=== PATIENT | female | born 1950 | race Hispanic/Latino ===

== ENCOUNTER 2017-11-26 05:33 | Day surgery (SDC) | payer OTHER ==
[~2017-11-26] VITALS: Ht 162.6 cm; Wt 78.7 kg
[~2017-11-26 05:33] MED LIST: ATEN50TA PO; CETI10CA5 PO; CITA40TA6 PO; FENO200C PO; LISI10TA7 PO; METF-444 PO; POTA20TA82 PO; RANI300C PO; TRIA1CAP6 PO
[2017-11-26] MEDS ORDERED: SODIUM CHLORIDE 0.9% 1000ML 1,000 ML IV ONE (05:35)
[2017-11-26 06:14] VITALS: BP 159/68
[2017-11-26] MEDS ORDERED: PROPOFOL 10 MG/ML 20ML VIAL IV ONE (06:28)
[2017-11-26] MEDS ORDERED: LIDOCAINE HCL-MPF 2% 5ML VIAL ONE (06:29)
[2017-11-26 07:16] VITALS: BP 94/40
[2017-11-26 07:21] VITALS: BP 119/41
[2017-11-26 07:26] VITALS: BP 109/51
== END 2017-11-26 08:00 | disposition home or self-care (01) ==
LOC: ENDO 05:33 → DAH 05:33 → ENDO 08:00
PROVIDERS: ATTEND Internal Medicine
DX: K57.30 Diverticulosis of large intestine without perforation or abscess without bleeding (principal); K29.50 Unspecified chronic gastritis without bleeding; Z86.010 Personal history of colon polyps; K44.9 Diaphragmatic hernia without obstruction or gangrene; K64.2 Third degree hemorrhoids; K86.1 Other chronic pancreatitis; K80.20 Calculus of gallbladder without cholecystitis without obstruction; K31.89 Other diseases of stomach and duodenum; I10 Essential (primary) hypertension; J45.909 Unspecified asthma, uncomplicated; E11.9 Type 2 diabetes mellitus without complications; F15.90 Other stimulant use, unspecified, uncomplicated; E78.5 Hyperlipidemia, unspecified; F17.210 Nicotine dependence, cigarettes, uncomplicated; Z85.22 Personal history of malignant neoplasm of nasal cavities, middle ear, and accessory sinuses; Z90.710 Acquired absence of both cervix and uterus; Z90.49 Acquired absence of other specified parts of digestive tract; Z98.49 Cataract extraction status, unspecified eye; Z79.2 Long term (current) use of antibiotics; Z79.899 Other long term (current) drug therapy; Z88.8 Allergy status to other drugs, medicaments and biological substances; Z83.3 Family history of diabetes mellitus; Z82.49 Family history of ischemic heart disease and other diseases of the circulatory system; Z82.5 Family history of asthma and other chronic lower respiratory diseases
CPT/HCPCS: 43239; 82948; 88305; 93005; A4606; G0121; J2704; J3490; J7030; 43231; 45380

== ENCOUNTER → 2023-01-07 | Outpatient (CLI) | payer MEDICARE ==
[~2023-01-07] MED LIST changes: +CITA-108 PO; -CITA40TA6 PO; -FENO200C PO; +FENO200C28 PO; +LISI10TA24 PO; -LISI10TA7 PO; +POTA-202 PO; -POTA20TA82 PO; -TRIA1CAP6 PO; +TRIA1CAP87 PO
== END | disposition home or self-care (01) ==
LOC: SHCH 07:32
PROVIDERS: ATTEND Internal Medicine Cardiovascular Disease
DX: I11.9 Hypertensive heart disease without heart failure (principal); I20.0 Unstable angina; E78.5 Hyperlipidemia, unspecified; E11.9 Type 2 diabetes mellitus without complications
CPT/HCPCS: 93306

== ENCOUNTER → 2023-01-15 | Outpatient (CLI) | payer MEDICARE | END | disposition home or self-care (01) | LOC: SHCH 09:19 | PROVIDERS: ATTEND Internal Medicine Cardiovascular Disease | DX: I87.2 Venous insufficiency (chronic) (peripheral) (principal); I70.293 Other atherosclerosis of native arteries of extremities, bilateral legs | CPT/HCPCS: 93925; 93970 ==

== ENCOUNTER → 2023-05-16 | Outpatient (CLI) | payer MEDICARE | END | disposition home or self-care (01) | LOC: RAH 07:03 | PROVIDERS: ATTEND Internal Medicine | DX: R14.0 Abdominal distension (gaseous) (principal); R10.13 Epigastric pain; R68.81 Early satiety | CPT/HCPCS: 78264; A9541 ==

== ENCOUNTER → 2023-07-01 | Outpatient (CLI) | payer MEDICARE | END | disposition home or self-care (01) | LOC: RAH 14:56 | PROVIDERS: ATTEND Internal Medicine | DX: K86.1 Other chronic pancreatitis (principal); R91.1 Solitary pulmonary nodule; R10.9 Unspecified abdominal pain; M54.50 Low back pain, unspecified; I70.0 Atherosclerosis of aorta | CPT/HCPCS: 71250; 74176 ==

== ENCOUNTER → 2023-09-22 | Outpatient (CLI) | payer MEDICARE | END | disposition home or self-care (01) | LOC: RAH 08:20 | PROVIDERS: ATTEND Internal Medicine | DX: R91.1 Solitary pulmonary nodule (principal); M47.815 Spondylosis without myelopathy or radiculopathy, thoracolumbar region; I70.0 Atherosclerosis of aorta; K86.1 Other chronic pancreatitis; Z90.49 Acquired absence of other specified parts of digestive tract | CPT/HCPCS: 71046; 76700 ==

== ENCOUNTER → 2024-12-30 | Outpatient (CLI) | payer MEDICARE ==
[~2024-12-30] MED LIST changes: +IOHEXOL 350 MG/ML 100ML INFUS..BTL IV ONE
--- NOTE | 2024-12-31 00:31 | HMCIMG ---
EXAM: CTA ABDOMEN WITH AND WITHOUT INTRAVENOUS CONTRAST (CT coverage limited up to the iliac fossa only, no pelvic evaluation) CLINICAL HISTORY: Unstable angina TECHNIQUE: Axial CTA images of the abdomen acquired with and without intravenous contrast in the arterial phase. Coronal and sagittal reformatted images reviewed. 3D volume-rendered reconstructions generated on an independent workstation. CONTRAST: Contrast injected intravenously without incident. COMPARISON: None provided. FINDINGS: VASCULATURE Aorta Diffuse atherosclerotic calcified plaques throughout the abdominal aorta. No aneurysm, dissection, or occlusion. Celiac Trunk Ostial calcified plaque causing 40%???70% stenosis. No occlusion. Superior Mesenteric Artery Ostial calcified plaque causing 20%???30% stenosis. Additional distal SMA plaque producing 50%???60% luminal stenosis. Inferior Mesenteric Artery Patent. No significant stenosis. Renal Arteries Bilateral renal artery ostial calcified plaques with up to 10% narrowing. No hemodynamically significant stenosis. Iliac Vessels (proximal segments, as included in field of view) Common iliac arteries patent without occlusion or significant stenosis. No dissection. LOWER THORAX Mild pleural thickening in the left basal region with subpleural scarring. No focal basilar consolidation. ABDOMEN Liver Hepatomegaly measuring 17 cm with diffuse fatty liver changes. Gallbladder and Bile Ducts Gallbladder surgically absent. No biliary ductal dilatation. Pancreas Cystic lesion measuring 4.4 ??? 4.6 ??? 5.2 cm in the pancreatic tail. No ductal dilatation. Spleen Normal. Adrenals No adrenal mass. Kidneys Symmetric enhancement. Bilateral perinephric fat stranding. No hydronephrosis or solid renal lesion. Stomach and Bowel No bowel obstruction. No bowel wall thickening. No CT evidence of acute diverticulitis. Appendix Appendix measures 0.3 cm, normal. Peritoneum No free intraperitoneal air. No free fluid. Lymph Nodes No abdominal lymphadenopathy up to the iliac fossa. Bones Age-appropriate thoracolumbar spondylosis without acute osseous pathology. Hernias Umbilical hernia with 2.5 cm fascial defect, containing fat. IMPRESSION: * Atherosclerotic arterial disease with: ??? 40%???70% stenosis at the celiac trunk ostium ??? 20%???30% stenosis at the SMA ostium ??? 50%???60% stenosis of the distal SMA ??? Bilateral renal artery ostial plaques with up to 10% stenosis * Pancreatic tail cystic lesion measuring 4.4 ??? 4.6 ??? 5.2 cm. Differentials include pseudocyst vs. cystadenoma. Recommend follow up. * Hepatomegaly with fatty liver. * Left basal pleural thickening and subpleural scarring. * Umbilical hernia with 2.5 cm fascial defect containing fat. * Comparison: No prior CTA available for interval assessment. * Radiologic???clinical correlation: Findings indicate multifocal atherosclerotic stenoses with additional abdominal incidental findings as described. /Kuna
== END | disposition home or self-care (01) ==
LOC: RAH 08:39
PROVIDERS: ATTEND Internal Medicine Cardiovascular Disease
DX: K76.0 Fatty (change of) liver, not elsewhere classified (principal); I20.0 Unstable angina; J98.4 Other disorders of lung; K42.9 Umbilical hernia without obstruction or gangrene; I70.1 Atherosclerosis of renal artery; I77.9 Disorder of arteries and arterioles, unspecified; Z90.49 Acquired absence of other specified parts of digestive tract
CPT/HCPCS: 74175; Q9967

== ENCOUNTER → 2025-01-10 | Outpatient (CLI) | payer MEDICARE ==
--- NOTE | 2025-01-11 08:40 | CARDIOLOGY ---
RAD REPORT: [facility] CT ANGIO RADIOLOGY REPORT: CORONARY CT ANGIOGRAPHY DATE: Jan 11, 2025 QUALITY: Excellent CLINICAL HISTORY AND INDICATION: [ chest pain ] TECHNIQUE: After obtaining a preliminary [place] image, contrast imaging performed on an [employer] [id number] scanner. A dedicated, limited window, coronary imaging protocol was used, with single breath-hold, retrospective ECG gating, and automated arrhythmia rejection. 100 cc of low osmolar contrast agent: Omnipaque 350 was delivered via a 18-gauge IV catheter in the right antecubital fossa, using a power injector and followed by 60 cc of normal saline bolus as a chaser. Collimated images were reformatted at 0.5 mm intervals, and sent to an offline independent workstation for interpretation, using 3D anatomic reconstructions: Curved multiplanar reconstructions, maximum intensity projections, and multiplanar imaging. No metoprolol was administered prior to scanning due to low baseline heart rate. No SL nitroglycerin was given. CORONARY ARTERY DESCRIPTIONS: The coronary arteries arise in normal position. Left main coronary artery: Normal caliber vessel that trifurcates into the LAD, ramus and LCx. There is mixed calcified and noncalcified plaque in the distal left main with 20-30% stenosis. Left anterior descending coronary artery: Normal caliber vessel and gives rise to diagonal and septal branches. There is mixed calcified and noncalcified plaque in the ostial LAD with 50-60% stenosis. There is mixed calcified and noncalcified plaque in the proximal to mid LAD with 50-60% stenosis. Ramus intermedius artery: Normal caliber. There is mixed calcified and nonc alcified plaque in the ostial/proximal ramus with 50-60% stenosis. Left circumflex coronary artery: Normal caliber, nondominant and gives rise to a large OM branch. No stenosis. Right coronary artery: Large, dominant vessel giving rise to the PL and PDA b ranches. No stenosis. CAD-RADs: 3, moderate stenosis. Sent for FFR. Thoracic Aorta: Normal diameter. Marlena Hamlin MD Cardiovascular Disease [facility] MARLENA HAMLIN MD Jan 11, 2025 08:40
== END | disposition home or self-care (01) ==
LOC: RAH 09:17
PROVIDERS: ATTEND Internal Medicine Cardiovascular Disease
DX: I25.110 Atherosclerotic heart disease of native coronary artery with unstable angina pectoris (principal)
CPT/HCPCS: 75574; Q9967

== ENCOUNTER → 2025-01-28 | Outpatient (CLI) | payer MEDICARE ==
[~2025-01-28] MED LIST changes: -IOHEXOL 350 MG/ML 100ML INFUS..BTL IV ONE
== END | disposition home or self-care (01) ==
LOC: RAH 08:00
PROVIDERS: ATTEND Internal Medicine Cardiovascular Disease
DX: I20.0 Unstable angina (principal)
CPT/HCPCS: 75580